=== PATIENT | male | born 1955 | race Caucasian/White ===

== ENCOUNTER 2019-09-26 08:41 | Day surgery (SDC) | payer OTHER ==
--- NOTE | 2019-09-26 08:00 | NUR ---
RECEIVED PT. FROM [facility]IA [facility]. TRANSFERRED FROM [facility]. PT. IS ASLEEP AND IN BED, AROUSABLE BUT FALLS ASLEEP QUICKLY. V/S TAKEN BP 113/65, HR 71, SAO2 94% ON RA, RR 18, TEMP 98.4, NO SIGNS OF DISTRESS, FLACC SCORE OF 0. IV SITE ON THE R FOREARM 20G AND R FOOT 22G, BOTH PATENT AND FLUSHES WELL. RESPIRATIONS EVEN AND UNLABORED. CALL LIGHT WITHIN REACH. PRESSURE ULCER OBSERVED, PICTURE TAKEN, WOUND IS DRY, CLEANED AND DRESSING IN PLACE. SEIZURE AND ASPIRATION PRECAUTIONS INITIATED. CALL LIGHT WITHIN REACH. WILL CONTINUE TO MONITOR.
--- NOTE | 2019-09-26 08:20 | NUR ---
PT. IS CHANGED, CLEANED AND TURNED. NO SIGNS OF DISTRESS NOTED. ANDREA CATHETER IN PLACE WITH OUTPUT 500ML OF BROWNISH URINE. SEIZURE AND ASPIRATION PRECAUTIONS IN PLACE. RESPIRATIONS EVEN AND UNLABORED, ON ROOM AIR AT 95%. WILL CONTINUE TO MONITOR.
--- NOTE | 2019-09-26 11:40 | NUR ---
EEG PROCEDURE BEING DONE BY AIDEE GARCIA. NO SIGNS OF DISTRESS NOTED FROM PT. WILL CONTINUE TO MONITOR.
[2019-09-26] MEDS ORDERED: SENN-73 PO (11:54)
[2019-09-26] MEDS ORDERED: LEVE1000 PO (11:54)
[2019-09-26] MEDS ORDERED: HEPA500056 SUBQ (11:54)
[2019-09-26] MEDS ORDERED: LACT10SO1 PO (11:54)
[2019-09-26] MEDS ORDERED: DOCU-299 PO (11:54)
[2019-09-26] MEDS ORDERED: TAMS0.4C96 PO (11:54)
[2019-09-26] MEDS ORDERED: ATOR40TA PO (11:54)
[2019-09-26] MEDS ORDERED: ERGO2000 PO (11:54)
[2019-09-26] MEDS ORDERED: ASPI-1822 PO (11:54)
[2019-09-26] MEDS ORDERED: ALBUTEROL SULFATE/IPRATROPIU 3 ML SOL IH PRN (11:55)
[2019-09-26] MEDS ORDERED: SENNA 8.6 MG TAB PO PRN (11:55)
--- NOTE | 2019-09-26 12:30 | NUR ---
V/S TAKEN AND WITHIN NORMAL LIMITS. FLACC SCORE OF 0. NO SIGNS OF DISTRESS NOTED. WILL CONTINUE TO MONITOR.
--- NOTE | 2019-09-26 14:50 | NUR ---
PT. IS CHANGED, CLEANED, AND TURNED. NO SIGNS OF DISTRESS NOTED. PT. IS ASLEEP AND IN BED. FLACC SCORE OF 0. WILL CONTINUE TO MONITOR.
--- NOTE | 2019-09-26 16:19 | NUR ---
DC PLANNING: PATIENT HAS A DC ORDER TO GO BACK TO [facility] CALLED [facility] [phone] SPOKE WITH SUSIE WILDE STATED ONCE SHE HEAR FROM DR MORRELL WILL CALL FOR THE ROOM NUMBER PER SUSIE SHE ARRANGED THE TRANSPORT WITH [facility] AND PLACE IT WILL CALL. NOTIFIED CHARGE NURSE TO EXPECT A CALL FROM [facility] ANDRY .
[2019-09-26 16:49] VITALS: BP 108/67
--- NOTE | 2019-09-26 17:40 | NUR ---
CONTACTED GUILLAUME DYE FOR TRANSFER REPORT TO [facility]. WILL CONTINUE TO MONITOR.
--- NOTE | 2019-09-26 17:45 | NUR ---
CONTACTED PT'S SON, NATALIA, TO INFORM PT'S RETURN TO [facility]. TRANSFER TEACHING GIVEN, FAMILY VERBALIZES UNDERSTANDING. DR. PROCTOR HAS SPOKEN TO NATALIA ABOUT EEG PROCEDURE AND DR. VENTURA'S NOTES. WILL CONTINUE TO MONITOR.
--- NOTE | 2019-09-26 18:10 | NUR ---
PT IS DISCHARGED TO [facility] VIA [facility] THROUGH [facility]. DISCHARGED TEACHINGS GIVEN TO PT, PT. UNABLE TO RETURN DEMO AND UNABLE TO RESPOND. PT. IS ASLEEP WHEN TRANSFERRED TO [facility]. ARMBANDS, IV AND ANDREA CATHETER REMAIN IN PLACE. NO SIGNS OF DISTRESS NOTED. FLACC SCORE OF 0. V/S TAKEN 123/74, HR 84, SAO2 95% ON RA, RR 18.
[2019-09-26] MEDS ORDERED: LACTULOSE 20 GM/30 ML UDC PO SCH (21:00)
[2019-09-26] MEDS ORDERED: DOCUSATE SODIUM 100 MG GELCAP PO SCH (21:00)
[2019-09-26] MEDS ORDERED: ATORVASTATIN 20 MG TAB PO SCH (21:00)
[2019-09-26] MEDS ORDERED: levETIRAcetam 500 MG TAB PO SCH (21:00)
[2019-09-27] MEDS ORDERED: TAMSULOSIN 0.4 MG CAP PO SCH (09:00)
[2019-09-27] MEDS ORDERED: ASPIRIN 81 MG TAB.CHEW PO SCH (09:00)
[2019-09-27] MEDS ORDERED: VITAMIN D 400 IU TAB PO SCH (09:00)
== END 2019-09-26 18:10 | disposition short-term general hospital (02) ==
LOC: MTU 08:41 → MDS 08:41 → MTU 08:41 → UNDOADMIN 08:41 → EDSTATUS 09:21 → MDS 18:10
PROVIDERS: ATTEND General Practice
DX: R41.82 Altered mental status, unspecified (principal); N17.0 Acute kidney failure with tubular necrosis; Z79.899 Other long term (current) drug therapy
CPT/HCPCS: 95816